=== PATIENT | male | born 1935 | race Caucasian/White ===

== ENCOUNTER 2017-03-06 18:22 | Inpatient (IN) | payer OTHER ==
--- NOTE | ~2017-03-06 | OP ---
Record Of Operation [facility] [address] [place]. [address] NAME: WILLIAMS MAHONEY : 34 STATUS : ADM IN PAT#: [id number] AGE: 81 ADM/REG DATE : 03/06/17 MR#: [id number] REPORT SERV DATE: 03/09/17 DICTATED BY: EDDY BLACKWOOD III DATE: 03/09/17 REPORT STATUS : Draft TRANSCRIBED BY: MODL DATE: 03/09/17 DATE OF PROCEDURE: 03/09/2017 PROCEDURE: Cystoscopy, right retrograde, and TURP. PREOPERATIVE DIAGNOSIS: Hematuria and right ureteral dilation. POSTOPERATIVE DIAGNOSIS: Hematuria and right ureteral dilation. ANESTHESIA: General. SURGEON: Eddy Blackwood M.D. PROCEDURE IN DETAIL: Following induction of adequate general anesthesia, the patient placed in dorsal lithotomy position. We could not get his hips abducted, they were almost straight, but bent at the knee, due to difficulty with his hip joints. We did not over abduct him. He was prepped and draped in a sterile fashion. A scope was used to examine the urethra and it was normal. There was irregular regrowth particularly on the right side of the bladder neck. The prostate which had been resected, the left side had much less tissue, there was irregular tissue that was slowly bleeding at the bladder neck and mid prostate. The bladder was entered. Movement of the scope and camera were somewhat limited, due to the knees being close together. I was able to get a view with a 70 degree lens and the flexible scope, and there were no tumors in the bladder. I was able to cannulate the right orifice and a retrograde showed narrowing in the intravesical portion, there were no filling defects. There was hydronephrosis above and Cytology was sent from the right kidney. The bladder was trabeculated and somewhat distorted. Next, the resectoscope sheath was inserted and a TURP was done. The majority of the tissue was taken from the right side. After circumferentially resecting all obstructing tissue. All chips and clots were evacuated. The ureteral orifices were intact. Hemostasis was excellent. A catheter was placed and irrigated clear. He tolerated the procedure well. Blood loss was approximately 200 mL. OB/MODL Eddy Blackwood III, M.D. / [id number] CC: Eddy Blackwood III, M.D.
--- NOTE | ~2017-03-06 | DS ---
Discharge Summary [address] [place]. [address] NAME: WILLIAMS MAHONEY : 34 STATUS : DIS IN PAT#: [id number] AGE: 81 ADM/REG DATE : 03/06/17 MR#: [id number] REPORT SERV DATE: 03/22/17 DICTATED BY: EDDY BLACKWOOD III DATE: 03/21/17 REPORT STATUS : Draft TRANSCRIBED BY: MODFranki DATE: 03/21/17 Data Collection from hospitalization DISCHARGE DIAGNOSES: 1. Hematuria and right ureteral dilation. 2. Hypertension. 3. Diabetes mellitus. 4. Chronic renal insufficiency. 5. Reflux. 6. History of colon cancer. 7. History of urinary retention. 8. Former smoker. CONSULTATIONS: David Lopez M.D. PROCEDURES PERFORMED: 1. Cystoscopy, right retrograde, and transurethral resection of the prostate on 03/09/2017. 2. CT scan of the abdomen and pelvis without contrast on 03/06/2017. PATHOLOGY: Right kidney washings for cytology (ThinPrep) - negative for high-grade urothelial dysplasia or carcinoma. Prostatic tissue (TUR 13 g) - benign glandular and stromal hyperplasia, benign prostatic urothelium. MEDICATIONS: Aspirin 81 mg daily, Coreg 3.125 mg twice a day, Plavix 75 mg daily, Neurontin 300 mg with lunch and 600 mg twice a day as instructed, Glucotrol 10 mg twice a day as instructed, Zestril 40 mg daily, Xarelto 15 mg daily, and Zocor 20 mg at bedtime. CONDITION AT DISCHARGE: Stable. DISPOSITION: The patient was discharged home on an 1800-calorie diabetic diet with no concentrated carbohydrates with activities as instructed. He would follow up with Dr. David Lopez on 03/17/2017. He would follow up with Dr. Eddy Blackwood three weeks following discharge. HOSPITAL COURSE: This is an 81-year-old man who developed gross hematuria and urinary retention. This was bright red blood and no clots. He began passing clots and began having difficulty voiding and then came to the emergency room. He has a history of TURP in the past and also a history of colon cancer, which had necessitated partial resection of the bladder mass involved with colon cancer. He is on Xarelto and Plavix. He said that up until a couple of days ago prior to admission he had been voiding well until the bleeding began. The patient is on no benign prostatic hypertrophy-type medications. He said he had surgery at [place] approximately four to five years previously. A catheter was in place. There were a few small clots. Continuous bladder irrigation was running essentially clear. We hand irrigated him and got several small clots and the urine was pink on slow drip. He underwent a CT scan of the abdomen and pelvis without contrast. It was felt that the hematuria may be coming from an incomplete trend urethral resection of the prostate. The prostate was somewhat irregular on the CT scan. He does have right hydronephrosis down to Discharge Summary [id number] [facility] [place]. [address] NAME: WILLIAMS MAHONEY : 34 STATUS : DIS IN PAT#: [id number] AGE: 81 ADM/REG DATE : 03/06/17 MR#: [id number] REPORT SERV DATE: 03/22/17 DICTATED BY: EDDY BLACKWOOD III DATE: 03/21/17 REPORT STATUS : Draft TRANSCRIBED BY: JERO DATE: 03/21/17 the bladder level and this could be the result of his surgery that took place when he had his colon resection and/or ureteral or bladder mass. In any event, he would need continuous bladder irrigation. That evening, Plavix and Xarelto were held. He was admitted to the hospital at this time for further evaluation and treatment. Upon admission, creatinine level was 2.12. INR level was 1.5. The following day, he was afebrile. Creatinine was 1.65. On 03/08/2017, his urine was still pink on continuous bladder irrigation. His abdomen was soft. His lungs were clear. Creatinine was 1.59. Hemoglobin was stable. He was seen by Dr. David Lopez. The patient had no chest pain or palpitations. Xarelto and Plavix were on hold. Aspirin was going to be continued. He has a history of paroxysmal atrial fibrillation, but was in a sinus rhythm at this time. Plans were being made for the patient to undergo surgical intervention. On 03/09/2017, the patient was taken to the operating room where he underwent the above-mentioned procedure. He tolerated this well, and there were no complications. He had no chest pain. He remained in a sinus rhythm/atrial paced rhythm. Aspirin was continued. On 03/10/2017, the Xarelto was going to be resumed in one week. He was going to follow up with Dr. Lopez two weeks following discharge. Over the next couple of days, he had no complaints. His urine was only minimally pink on slow continuous bladder irrigation. The continuous bladder irrigation was discontinued. Discharge planning was performed. On 03/12/2017, the Prakash catheter was removed. He was voiding. His urine remained pink. Discharge instructions were given. Due to his improved and stable condition, he was discharged home with the above-stated instructions. Information collected by: Hedy Dooley I submit the above information as my discharge summary. TG/JERO Eddy Blackwood III, M.D. / [id number] CC: Marie Krishnamurthy III, M.D.
--- NOTE | ~2017-03-06 | HP ---
History And Physical [id number] [facility] [place]. [address] NAME: WILLIAMS MAHONEY : 34 STATUS : ADM Arsalan PAT#: [id number] AGE: 81 ADM/REG DATE : 03/06/17 MR#: [id number] REPORT SERV DATE: 03/07/17 DICTATED BY: EDDY PAIZ III DATE: 03/07/17 REPORT STATUS : Draft TRANSCRIBED BY: MODL DATE: 03/07/17 DATE OF ADMISSION: 03/06/2017 REASON FOR CONSULT: Gross hematuria and urinary retention. HISTORY OF PRESENT ILLNESS: The patient is an 81-year-old white male, who began seeing blood several days ago. This was bright red blood, no clots. He began passing clots and began having difficulty voiding and came to the emergency room. The patient has a history of a TURP in the past and also has a history of colon cancer, which necessitated partial resection of a bladder mass involved with colon cancer. He is on Xarelto and Plavix. He states up to a couple days ago, he was voiding well until the bleeding began. He is on no BPH-type medications. He states the surgery was at [place] approximately four to five years ago. A catheter was placed. There were a few small clots. The CBI was running essentially clear. I hand-irrigated him and got several small clots and the urine was pink on a slow drip. He went for CT scan and this showed medical renal disease with small scarred kidneys, consistent with his creatinine of 2.12. Also showed some high-density material in the bladder, probably small clot and the right ureter dilated down to the level of the bladder with a potential mass in the UVJ or bladder. PAST MEDICAL HISTORY: Pertinent for the colon surgery, the partial bladder resection, and TURP. He has had a cholecystectomy and pacemaker placement. 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 Lopez. He also has 2 cardiac stents, but they deny a myocardial infarction. In addition, he has hypertension. He also has chronic renal insufficiency and reflux. REVIEW OF SYSTEMS: At this point, he does not smoke or drink. He denies any recent chest pain or shortness of breath. He has had no GI complaints other than constipation. He has had no dizzy spells, headaches. The remainder of review of systems can be found in the HPI. PHYSICAL EXAMINATION: VITAL SIGNS: On exam, his blood pressure was high on admission, it was 198/96, subsequently came down. He was afebrile. Respirations were 18. He was drowsy, having been given the medication prior to the catheter placement but was responsive. HEENT: Unremarkable. NECK: Supple. There was a soft bruit on the left carotid. LUNGS: Lung castellanos were clear. He had a regular rhythm with occasional ectopic beat. I did not hear a murmur. ABDOMEN: Soft. Bowel sounds were present and active. Liver and spleen were not enlarged. Prakash catheter was draining clear urine on a medium drip. Testicles were descended bilaterally. RECTAL: Exam revealed enlarged prostate, smooth, without nodularity or induration. LABORATORY DATA: Revealed a creatinine of 2.12, glucose of 227, hemoglobin 16.5, white count is 8.5. Urinalysis had 182 RBCs, 2 WBCs and yeast. The INR was 1.5. CT was as mentioned above. History And Physical [address] [address] NAME: WILLIAMS MAHONEY : 34 STATUS : ADM Arsalan PAT#: [id number] AGE: 81 ADM/REG DATE : 03/06/17 MR#: [id number] REPORT SERV DATE: 03/07/17 DICTATED BY: EDDY PAIZ III DATE: 03/07/17 REPORT STATUS : Draft TRANSCRIBED BY: JERO DATE: 03/07/17 IMPRESSION: Impression is that of hematuria which may be coming from an incomplete transurethral resection of prostate done 5 years ago. The prostate looked somewhat irregular on the CT. He does have right hydronephrosis down to the bladder level and this could be the result of his surgery that took place when he had his colon resection and/or a ureteral or bladder mass. In any event, he will need continuous bladder irrigation tonight. I am holding his Plavix and Xarelto. I will consult Dr. Lopez in the a.m. to guide us with anticoagulation. OB/MODL Eddy Paiz III, M.D. / [id number] CC: Eddy Paiz III, M.D.
[~2017-03-06 18:22] MED LIST: ASAB PO; COREG3 PO; CRESTOR40 MG PO; GLUCOTRO10 PO; LIPITOR40 PO; LISINOPRIL40 MG PO; NEUR300 PO; PLAVIX PO; PROSCAR5 PO; VITC500 PO; XARELTO15 MG PO; ZOCOR20 PO
[2017-03-06 21:12] LABS: BASOPHILS 0.1 %; BASOPHILS ABSOLUTE 0.01 10/3/uL (0.0-0.16); EOSINOPHILS 0.2 %; EOSINOPHILS ABSOLUTE 0.02 10/3/uL (0.0-0.53); ER CBC TAT 0 Hrs 00 Mins; HEMATOCRIT 45.7 % (40.0-51.0); HEMOGLOBIN 16.5 g/dL (13.6-17.8); IMMATURE GRANULOCYTES 0.2 %; IMMATURE GRANULOCYTES ABSOLUTE 0.02 10/3/uL (0.0-0.11); LYMPHOCYTES 9.2 %; LYMPHOCYTES ABSOLUTE 0.78 10/3/uL (0.67-4.30); MEAN CORPUS HGB CONC 36.1 g/dL (32.0-36.0); MEAN CORPUSCULAR HEMOGLOB 31.5 pg (26.0-34.0); MEAN CORPUSCULAR VOLUME 87.4 fL (80-100); MEAN PLATELET VOLUME 10.4 fL (9.2-13.0); MONOCYTES 8.7 %; MONOCYTES ABSOLUTE 0.74 10/3/uL (0.21-1.20); NEUTROPHILS 81.6 %; NEUTROPHILS ABSOLUTE 6.89 10/3/uL (2.02-8.40); PLATELET COUNT 108 10/3/uL (150-400); RBC DISTRIBUTION WIDTH 13.6 % (12.0-16.0); RED CELL COUNT 5.23 10/6/uL (4.7-6.1)
[2017-03-06 21:14] LABS: MANUAL DIFF NO %; WHITE BLOOD CELLS 8.5 10/3/uL (4.5-10.5)
[2017-03-06 21:21] LABS: INTERNATIONAL NORMAL RATI 1.5 UNITS (-); PROTIME (NOT ORD) 17.9 SEC (12.0-14.5)
[2017-03-06 21:28] LABS: A/G RATIO 1.1 (0.7-1.9); ALBUMIN 4.1 G/DL (3.5-5.0); ALKALINE PHOSPHATASE 123 U/L (45-117); BUN (BLOOD UREA NITROGEN) 23 MG/DL (6-23); CALCIUM, SERUM 9.6 MG/DL (8.5-10.4); CHLORIDE, SERUM 101 MMOL/L (96-112); CO2 (CARBON DIOXIDE) 29 MMOL/L (24-34); CREATININE 2.12 MG/DL (0.70-1.30); GFR AFRICAN AMERICAN 33 ML/MIN (>=60); GFR NON AFRICAN AMERICAN 28 ML/MIN (>=60); GLOBULIN 3.7 G/DL (2.5-4.1); GLUCOSE, SERUM 227 MG/DL (60-99); SGOT(AST) 11 U/L (5-40); SGPT(ALT) 9 U/L (5-65); SODIUM, SERUM 137 MMOL/L (135-148); TOTAL PROTEIN 7.8 G/DL (6.0-8.5)
[2017-03-06] MEDS ORDERED: XARELTO15 MG PO (22:46)
[2017-03-06] MEDS ORDERED: ZOCOR20 PO (22:46)
[2017-03-06] MEDS ORDERED: GLUCOTRO10 PO (22:46)
[2017-03-06] MEDS ORDERED: HALF81 PO (22:47)
[2017-03-06] MEDS ORDERED: COREG3 PO (22:47)
[2017-03-06] MEDS ORDERED: NEUR600 PO (22:47)
[2017-03-06] MEDS ORDERED: ZESTRIL40 MG PO (22:47)
[2017-03-06] MEDS ORDERED: PLAVIX PO (22:47)
[2017-03-06] MEDS ORDERED: NEUR300 PO (22:48)
[2017-03-06 23:44] LABS: ASCORBIC ACID (UR NOT ORDER) NEG (NEG); BILIRUBIN, URINE NEGATIVE (NEG); ER URINALYSIS TAT 0 Hrs 00 Mins; KETONE, URINE TRACE MG/DL (NEG); LEUKOCYTE ESTERASE(NOT OR NEG (NEG); NITRITE (URINE) NEG (NEG); WBC (NOT ORDERED) (RFLEX) 2 (0-5)
[2017-03-07 05:34] LABS: BUN (BLOOD UREA NITROGEN) 20 MG/DL (6-23); CALCIUM, SERUM 9.2 MG/DL (8.5-10.4); CHLORIDE, SERUM 106 MMOL/L (96-112); CO2 (CARBON DIOXIDE) 25 MMOL/L (24-34); CREATININE 1.65 MG/DL (0.70-1.30); GFR AFRICAN AMERICAN 44 ML/MIN (>=60); GFR NON AFRICAN AMERICAN 38 ML/MIN (>=60); GLUCOSE, SERUM 252 MG/DL (60-99); POTASSIUM, SERUM 4.7 MMOL/L (3.5-5.3); SODIUM, SERUM 139 MMOL/L (135-148)
[2017-03-08 05:39] LABS: CHLORIDE, SERUM 106 MMOL/L (96-112); CO2 (CARBON DIOXIDE) 25 MMOL/L (24-34); CREATININE 1.59 MG/DL (0.70-1.30); GFR AFRICAN AMERICAN 46 ML/MIN (>=60); GFR NON AFRICAN AMERICAN 40 ML/MIN (>=60); POTASSIUM, SERUM 4.3 MMOL/L (3.5-5.3); SODIUM, SERUM 140 MMOL/L (135-148)
[2017-03-08 05:42] LABS: BUN (BLOOD UREA NITROGEN) 31 MG/DL (6-23); GLUCOSE, SERUM 184 MG/DL (60-99)
[2017-03-09 05:43] LABS: BASOPHILS 0.3 %; BASOPHILS ABSOLUTE 0.02 10/3/uL (0.0-0.16); EOSINOPHILS 4.2 %; EOSINOPHILS ABSOLUTE 0.27 10/3/uL (0.0-0.53); HEMATOCRIT 41.7 % (40.0-51.0); HEMOGLOBIN 14.4 g/dL (13.6-17.8); IMMATURE GRANULOCYTES 0.2 %; IMMATURE GRANULOCYTES ABSOLUTE 0.01 10/3/uL (0.0-0.11); LYMPHOCYTES 20.2 %; MEAN CORPUS HGB CONC 34.5 g/dL (32.0-36.0); MEAN CORPUSCULAR HEMOGLOB 31.3 pg (26.0-34.0); MEAN PLATELET VOLUME 10.1 fL (9.2-13.0); MONOCYTES 10.4 %; MONOCYTES ABSOLUTE 0.67 10/3/uL (0.21-1.20); NEUTROPHILS 64.7 %; NEUTROPHILS ABSOLUTE 4.15 10/3/uL (2.02-8.40); PLATELET COUNT 88 10/3/uL (150-400); RBC DISTRIBUTION WIDTH 13.9 % (12.0-16.0); WHITE BLOOD CELLS 6.4 10/3/uL (4.5-10.5)
[2017-03-09 05:44] LABS: MEAN CORPUSCULAR VOLUME 90.7 fL (80-100)
[2017-03-09 05:45] LABS: MANUAL DIFF NO %
[2017-03-09 05:54] LABS: BUN (BLOOD UREA NITROGEN) 29 MG/DL (6-23); CALCIUM, SERUM 9.2 MG/DL (8.5-10.4); CHLORIDE, SERUM 107 MMOL/L (96-112); CO2 (CARBON DIOXIDE) 28 MMOL/L (24-34); CREATININE 1.48 MG/DL (0.70-1.30); GFR AFRICAN AMERICAN 50 ML/MIN (>=60); GFR NON AFRICAN AMERICAN 43 ML/MIN (>=60); GLUCOSE, SERUM 164 MG/DL (60-99); POTASSIUM, SERUM 4.9 MMOL/L (3.5-5.3); SODIUM, SERUM 142 MMOL/L (135-148)
[2017-03-10 07:10] LABS: BASOPHILS 0.1 %; BASOPHILS ABSOLUTE 0.01 10/3/uL (0.0-0.16); EOSINOPHILS 0.4 %; EOSINOPHILS ABSOLUTE 0.03 10/3/uL (0.0-0.53); HEMOGLOBIN 14.4 g/dL (13.6-17.8); IMMATURE GRANULOCYTES 0.4 %; IMMATURE GRANULOCYTES ABSOLUTE 0.03 10/3/uL (0.0-0.11); LYMPHOCYTES ABSOLUTE 0.57 10/3/uL (0.67-4.30); MEAN CORPUS HGB CONC 35.1 g/dL (32.0-36.0); MEAN CORPUSCULAR HEMOGLOB 31.5 pg (26.0-34.0); MEAN CORPUSCULAR VOLUME 89.7 fL (80-100); MEAN PLATELET VOLUME 10.2 fL (9.2-13.0); MONOCYTES 9.1 %; MONOCYTES ABSOLUTE 0.74 10/3/uL (0.21-1.20); NEUTROPHILS ABSOLUTE 6.71 10/3/uL (2.02-8.40); PLATELET COUNT 106 10/3/uL (150-400); RBC DISTRIBUTION WIDTH 13.8 % (12.0-16.0); RED CELL COUNT 4.57 10/6/uL (4.7-6.1); WHITE BLOOD CELLS 8.1 10/3/uL (4.5-10.5)
[2017-03-10 07:12] LABS: MANUAL DIFF NO %
[2017-03-10 07:22] LABS: BUN (BLOOD UREA NITROGEN) 31 MG/DL (6-23); CALCIUM, SERUM 8.5 MG/DL (8.5-10.4); CHLORIDE, SERUM 102 MMOL/L (96-112); CO2 (CARBON DIOXIDE) 26 MMOL/L (24-34); CREATININE 1.66 MG/DL (0.70-1.30); GFR AFRICAN AMERICAN 44 ML/MIN (>=60); GFR NON AFRICAN AMERICAN 38 ML/MIN (>=60); POTASSIUM, SERUM 4.7 MMOL/L (3.5-5.3); SODIUM, SERUM 136 MMOL/L (135-148)
[2017-03-10 07:23] LABS: GLUCOSE, SERUM 334 MG/DL (60-99)
== END 2017-03-12 16:32 | disposition home or self-care (01) | DRG 713 ==
LOC: ER 18:22 → CDU1 20:00 → CDU2 03-07 01:30 → SDC/OF 03-09 15:28 → 4SO 03-09 20:40
PROVIDERS: Emergency Medicine; Urology
DX: N40.1 Benign prostatic hyperplasia with lower urinary tract symptoms (principal); N13.39 Other hydronephrosis; E11.22 Type 2 diabetes mellitus with diabetic chronic kidney disease; Z85.038 Personal history of other malignant neoplasm of large intestine; Z90.49 Acquired absence of other specified parts of digestive tract; I25.10 Atherosclerotic heart disease of native coronary artery without angina pectoris; Z95.5 Presence of coronary angioplasty implant and graft; I12.9 Hypertensive chronic kidney disease with stage 1 through stage 4 chronic kidney disease, or unspecified chronic kidney disease; N18.9 Chronic kidney disease, unspecified; K21.9 Gastro-esophageal reflux disease without esophagitis; K59.00 Constipation, unspecified; Z79.01 Long term (current) use of anticoagulants; Z87.891 Personal history of nicotine dependence; R33.8 Other retention of urine; Z90.6 Acquired absence of other parts of urinary tract; R31.0 Gross hematuria; I48.0 Paroxysmal atrial fibrillation
CPT/HCPCS: 74176; 74420; 80048; 80053; 81001; 82962; 83690; 85025; 85610; 88112; 88305; 93005; 96374; 96375; 99291; A9270-GY; C1758; C1769; J0360; J1170; J1200; J2370; J2405; J2710; J2930; J3010; Q9967